=== PATIENT | male | born 1975 | race Caucasian/White ===

== ENCOUNTER 2024-12-01 10:00 | Outpatient (CLI) | payer BC | END 2024-12-01 23:59 | disposition home or self-care (01) | LOC: RAD 10:00 | PROVIDERS: ATTEND Nurse Practitioner Primary Care | DX: S22.088A Other fracture of T11-T12 vertebra, initial encounter for closed fracture (principal); S23.9XXA Sprain of unspecified parts of thorax, initial encounter; M54.16 Radiculopathy, lumbar region; M25.551 Pain in right hip; M25.552 Pain in left hip; M25.561 Pain in right knee; X58.XXXA Exposure to other specified factors, initial encounter; Y93.89 Activity, other specified; Y92.89 Other specified places as the place of occurrence of the external cause; Y99.8 Other external cause status | CPT/HCPCS: 72074; 72100; 73564 ==